=== PATIENT | female | born 1980 | race Caucasian/White ===

== ENCOUNTER 2019-01-12 17:38 | Emergency (ER) | payer MEDICAID | END 2019-01-12 18:55 | disposition home or self-care (01) | LOC: FTE 17:38 | DX: S39.012A Strain of muscle, fascia and tendon of lower back, initial encounter (principal); S89.92XA Unspecified injury of left lower leg, initial encounter; W01.0XXA Fall on same level from slipping, tripping and stumbling without subsequent striking against object, initial encounter; Y92.9 Unspecified place or not applicable; Z87.891 Personal history of nicotine dependence | CPT/HCPCS: 99282; Z7502 ==

== ENCOUNTER 2019-02-26 09:55 | Emergency (ER) | payer MEDICAID ==
[2019-02-26 10:38] LABS: ADD MAN DIFF? NO
[2019-02-26 10:42] LABS: BASOPHIL # 0.1 10^3/ul (0.0-0.1); BASOPHILS % 1.1 % (0.0-2.0); EOSINOPHILS # 0.1 10^3/ul (0.0-0.5); LYMPHOCYTES # 2.1 10^3/ul (0.8-2.9); LYMPHOCYTES % 38.1 % (15.0-51.0); MEAN CORPUSCULAR HGB CONC 33.3 g/dl (32.0-37.0); MEAN CORPUSCULAR VOLUME 92.9 fl (82.0-101.0); MEAN PLATELET VOLUME 11.1 fl (7.4-10.4); MONOCYTE # 0.4 10^3/ul (0.3-0.9); NEUTROPHIL # 2.8 10^3/ul (1.6-7.5); NEUTROPHILS % 51.6 % (39.0-77.0); PLATELET COUNT 179 10^3/UL (140-415); RED CELL DISTRIBUTION WIDTH 12.7 % (11.5-14.5)
[2019-02-26 10:42] LABS: WHITE BLOOD COUNT 5.4 10^3/ul (4.8-10.8)
[2019-02-26 10:51] LABS: ADD UMIC YES; UR ASCORBIC ACID NEGATIVE (NEGATIVE); UR BACTERIA FEW /HPF (NONE SEEN); UR BILIRUBIN (Dip) NEGATIVE (NEGATIVE); UR BLOOD (Dip) 2+ mg/dL (NEGATIVE); UR CLARITY CLEAR (CLEAR); UR COLOR STRAW (YELLOW); UR GLUCOSE (Dip) NEGATIVE (NEGATIVE); UR KETONES (Dip) NEGATIVE (NEGATIVE); UR LEUKOCYTE ESTERASE (Dip) NEGATIVE Leu/ul (NEGATIVE); UR NITRITE (Dip) NEGATIVE (NEGATIVE); UR RBC 1 /HPF (0-5); UR SPECIFIC GRAVITY (Dip) 1.002 (1.003-1.030); UR SQUAMOUS EPITHELIAL CELL FEW /HPF (FEW); UR TOTAL PROTEIN (Dip) NEGATIVE (NEGATIVE); UR UROBILINOGEN (Dip) NEGATIVE (NEGATIVE); UR WBC 1 /HPF (0-5)
== END 2019-02-26 11:51 | disposition home or self-care (01) ==
LOC: FTE 09:55
DX: O20.9 Hemorrhage in early pregnancy, unspecified (principal); Z3A.00 Weeks of gestation of pregnancy not specified
CPT/HCPCS: 36415; 76801; 76817; 81001; 84702; 85025; 86900; 86901; 99284-25

== ENCOUNTER 2019-02-28 17:08 | Emergency (ER) | payer MEDICAID | END 2019-02-28 19:45 | disposition home or self-care (01) | LOC: FTE 17:08 | DX: O20.9 Hemorrhage in early pregnancy, unspecified (principal); Z3A.00 Weeks of gestation of pregnancy not specified | CPT/HCPCS: 36415; 76801; 76817; 84702; 99284-25 ==